=== PATIENT | male | born 1975 | race Hispanic/Latino ===

== ENCOUNTER 2021-12-17 15:37 | Emergency (ER) | payer SELFPAY ==
[2021-12-17 16:26] VITALS: BP 105/47
--- NOTE | 2021-12-17 16:49 | XRay Report ---
LEFT HAND 3 VIEW(S) INDICATION / CLINICAL INFORMATION: injury LT THUMB COMPARISON: None available. FINDINGS: BONES / JOINT(S): Mildly displaced intra-articular fracture involving the dorsal base of the thumb pr oximal phalanx. No significant arthritis. SOFT TISSUES: Mild soft tissue swelling about the thumb. ADDITIONAL FINDINGS: None. Signer Name: Yonis Miles MD Signed: 12/17/2021 4:45 PM Workstation Name: [id number]
--- NOTE | 2021-12-17 19:03 | Emergency Department Report ---
ED Upper Extremity Inj HPI - General Chief Complaint: Extremity Injury, Upper Stated Complaint: BROKEN THUMB Time Seen by Provider: 12/17/21 18:51 Source: patient Mode of arrival: Ambulatory Limitations: No Limitations - History of Present Illness Initial Comments: Patient is 46-year-old male with no significant past medical history. Patient presented to the ER complaining of left thumb pain after an injury that happened on Saturday approximately 5 days ago. Patient stated that he fell on his left hand. Patient stated that he is able to move his thumb but it hurt when he do that. He denied any other injuries. Complaint: Injury to:: left, hand, finger -: days(s) (5) Other Extremity Injury: Fingers: Left, Hand: Left Other Injuries: none Improves With: cold therapy, immobilization Context: fall Associated Symptoms: denies other symptoms - Related Data Allergies Allergy/AdvReac Type Severity Reaction Status Date / Time No Known Allergies Allergy Unverified 12/17/21 16:24 ED Review of Systems ROS: Stated complaint: BROKEN THUMB Other details as noted in HPI Comment: All other systems reviewed and negative Constitutional: denies: chills, fever Respiratory: denies: cough, shortness of breath, SOB with exertion, SOB at rest Cardiovascular: denies: chest pain, palpitations Gastrointestinal: denies: abdominal pain, nausea, vomiting Musculoskeletal: denies: back pain Neurological: denies: headache, weakness, numbness, paresthesias, confusion ED Physical Exam - General Limitations: No Limitations General appearance: alert, in no apparent distress - Head Head exam: Present: atraumatic, normocephalic, normal inspection - Eye Eye exam: Present: normal appearance - ENT ENT exam: Present: normal exam, normal orophraynx, mucous membranes moist - Neck Neck exam: Present: normal inspection, full ROM. Absent: tenderness, meningismus - Respiratory Respiratory exam: Present: normal lung sounds bilaterally - Cardiovascular Cardiovascular Exam: Present: regular rate, normal rhythm, normal heart sounds - GI/Abdominal GI/Abdominal exam: Present: soft, normal bowel sounds. Absent: distended, tenderness, guarding, rebound, rigid, organomegaly, mass, bruit, pulsatile mass, hernia - Expanded Upper Extremity Exam Left Hand Wrist exam: Present: tenderness, swelling. Absent: ecchymosis, deformity, crepidus Neuro motor exam: Present: wrist extension intact, thumb opposition intact, thumb IP flexion intact, thumb adduction intact, fingers 2-5 abduction intact Neurosensory exam: Present: 2-point discrimination, radial nerve intact, ulnar nerve intact, median nerve intact Vascular: Present: normal capillary refill - Back Exam Back exam: Present: normal inspection, full ROM. Absent: CVA tenderness (R), CVA tenderness (L) - Neurological Exam Neurological exam: Present: alert, oriented X3, CN II-XII intact. Absent: motor sensory deficit - Psychiatric Psychiatric exam: Present: normal mood - Skin Skin exam: Present: warm, intact, normal color ED Course Vital Signs 12/17/21 16:25 Temperature 97.7 F Pulse Rate 81 Respiratory 18 Rate Blood Pressure 105/47 O2 Sat by Pulse 97 Oximetry - Orthopedic Splinting/Casting Injury #1 Side: left Upper Extremity Injury Location: finger Upper Extremity Immobilizer: thumb spica ED Medical Decision Making - Radiology Data Radiology results: report reviewed - Medical Decision Making Patient is 46-year-old male with no significant past medical history. Patient presented to the ER complaining of left thumb pain after an injury that happened on Saturday approximately 5 days ago. Patient stated that he fell on his left hand. Patient stated that he is able to move his thumb but it hurt when he do that. He denied any other injuries. Left hand x-ray showed mildly displaced fracture at the dorsal base of the thumb. Patient has no other fracture or dislocation. Thumb spica applied. Patient given Dr. Chaudhry, orthopedics on-call to follow-up with and to return to the ER if he develop any new symptoms. Critical care attestation.: If time is entered above; I have spent that time in minutes in the direct care of this critically ill patient, excluding procedure time. ED Disposition Clinical Impression: Fracture of thumb, left, closed Disposition: HOME / SELF CARE / HOMELESS Is pt being admited?: No Condition: Stable Instructions: Cast or Splint Care, Adult, [id number], Thumb Fracture Referrals: BETZY CHAUDHRY MD [Staff Physician] - 3-5 Days
== END 2021-12-17 19:25 | disposition home or self-care (01) ==
LOC: ED 15:37
DX: S62.512A Displaced fracture of proximal phalanx of left thumb, initial encounter for closed fracture (principal); Z79.899 Other long term (current) drug therapy; W18.39XA Other fall on same level, initial encounter; Y93.89 Activity, other specified; Y92.89 Other specified places as the place of occurrence of the external cause; Y99.8 Other external cause status
CPT/HCPCS: 99283